=== PATIENT | female | born 1940 | race Caucasian/White ===

== ENCOUNTER → 2022-10-31 | Outpatient (CLI) | payer MEDICARE, OTHER, SELFPAY ==
--- NOTE | 2022-10-31 08:56 | STRESSREP_ITS ---
Stress Test Report Date: 10-31-2022 Procedure: Pharmacologic stress nuclear imaging study Indications: [Atrial fibrillation/flutter, valvular heart disease, pulmonary hypertension, hyperlipidemia, hypertension, peripheral arterial occlusive disease, chest pain] Consent: Per the patient Procedure: The patient underwent pharmacologic (Regadenoson 0.4mg ) evaluation with a peak heart rate of 108 beats per minute (78%predicted maximal heart rate) and a resting blood pressure of 128/82 mmHg and a peak blood pressure of 128/82 mmHg. The baseline ECG demonstrated atrial fibrillation; right bundle branch block pattern. The peak pharmacologic ECG demonstrated no obvious ECG changes. [There were no cardiac dysrhythmias pretest, during pharmacologic infusion, or recovery]. [There was no complaint of chest discomfort during pharmacologic infusion or recovery]. The examination was discontinued secondary to completion of protocol. Impression: 1. Pharmacologic (Regadenoson) evaluation 2. Peak pharmacologic ECG with continued atrial fibrillation with right bundle branch block pattern with no obvious ECG change. 3. [There were no cardiac dysrhythmias pretest, during pharmacologic infusion, or recovery]. 4. Nuclear images pending Myocardial perfusion imaging study: Technique: The patient was injected with 10.8 millicuries of technetium 99m Cardiolite and subsequently rest SPECT Cardiolite nuclear imaging was obtained in the horizontal long, vertical long, and short axis views. The patient underwent pharmacologic (Regadenoson) evaluation with a peak heart rate of 108 beats per minute (78% percent predicted maximal heart rate) and a resting blood pressure of 128/82 mmHg and a peak blood pressure of 128/82 mmHg. The patient was injecte d with 35.3 millicuries of technetium 99m Cardiolite and subsequently stress SPECT Cardiolite nuclear imaging was obtained in the horizontal long, vertical long, and short axis views. A gated Cardiolite study at peak stress was obtained. Interpretation: Rest and stress SPECT Cardiolite nuclear imaging status post realignment, normalization, and attenuation correction demonstrate []. [There is end systolic thickening and brightening]. [The gated Cardiolite study demonstrates myocardial thickening and inward wall motion]. The reported LVEF is []%. Impression: 1. [Rest and stress SPECT Cardiolite nuclear imaging demonstrate relative uniform tracer uptake and myocardial perfusion appearing within normal limits]. 2. The gated Cardiolite study reports an LVEF of []%. This note was generated with Dragon dictation software. It may contain incorrect words, spelling, and punctuation that were not noted in checking the note before signing.
--- NOTE | 2022-10-31 08:56 | STRESSREP ---
Stress Test Report Date: 10-31-2022 Procedure: Pharmacologic stress nuclear imaging study Indications: Atrial fibrillation/flutter, valvular heart disease, pulmonary hypertension, hyperlipidemia, hypertension, peripheral arterial occlusive disease, chest pain Consent: Per the patient Procedure: The patient underwent pharmacologic (Regadenoson 0.4mg ) evaluation with a peak heart rate of 108 beats per minute (78%predicted maximal heart rate) and a resting blood pressure of 128/82 mmHg and a peak blood pressure of 128/82 mmHg. The baseline ECG demonstrated atrial fibrillation; right bundle branch block pattern. The peak pharmacologic ECG demonstrated no obvious ECG changes. There were no cardiac dysrhythmias pretest, during pharmacologic infusion, or recovery. There was no complaint of chest discomfort during pharmacologic infusion or recovery. The examination was discontinued secondary to completion of protocol. Impression: 1. Pharmacologic (Regadenoson) evaluation 2. Peak pharmacologic ECG with continued atrial fibrillation with right bundle branch block pattern with no obvious ECG change. 3. There were no cardiac dysrhythmias pretest, during pharmacologic infusion, or recovery. 4. Nuclear images pending Myocardial perfusion imaging study: Technique: The patient was injected with 10.8 millicuries of technetium 99m Cardiolite and subsequently rest SPECT Cardiolite nuclear imaging was obtained in the horizontal long, vertical long, and short axis views. The patient underwent pharmacologic (Regadenoson) evaluation with a peak heart rate of 108 beats per minute (78% percent predicted maximal heart rate) and a resting blood pressure of 128/82 mmHg and a peak blood pressure of 128/82 mmHg. The patient was injected with 35.3 millicuries of technetium 99m Cardiolite and subsequently stress SPECT Cardiolite nuclear imaging was obtained in the horizontal long, vertical long, and short axis views. A gated Cardiolite study at peak stress was obtained. Interpretation: Rest and stress SPECT Cardiolite nuclear imaging status post realignment, normalization, and attenuation correction demonstrate relative uniform tracer uptake and myocardial perfusion appearing within normal limits. There is end systolic thickening and brightening. The gated Cardiolite study demonstrates myocardial thickening and inward wall motion. The reported LVEF is 71%. Impression: 1. Rest and stress SPECT Cardiolite nuclear imaging demonstrate relative uniform tracer uptake and myocardial perfusion appearing within normal limits. 2. The gated Cardiolite study reports an LVEF of 71%. This note was generated with [employer] software. It may contain incorrect words, spelling, and punctuation that were not noted in checking the note before signing.
== END | disposition home or self-care (01) ==
LOC: CVS 06:20
PROVIDERS: PCP Family Medicine; Referring Provider Internal Medicine Cardiovascular Disease; Visit Provider Internal Medicine Cardiovascular Disease
DX: R07.9 Chest pain, unspecified (principal); I27.20 Pulmonary hypertension, unspecified; I48.91 Unspecified atrial fibrillation; I36.1 Nonrheumatic tricuspid (valve) insufficiency; I34.0 Nonrheumatic mitral (valve) insufficiency; E78.2 Mixed hyperlipidemia; I10 Essential (primary) hypertension; I65.23 Occlusion and stenosis of bilateral carotid arteries
CPT/HCPCS: 78452; 93017; A9500; J2785

== ENCOUNTER → 2022-11-09 | Outpatient (CLI) | payer MEDICARE, OTHER, SELFPAY ==
[2022-11-09 12:54] LABS: Anion Gap 6 (5-15); BUN 20 mg/dL (7-18); BUN/Creat Ratio 22.3 RATIO (10-20); Chloride 101 mmol/L (98-107); EST Glomerular Filtration Rate 64 mL/min (>60); Est Glom Filt Rate - Afr Amer 77 mL/min (>60); Glucose 116 mg/dL (74-106); Potassium 4.5 mmol/L (3.5-5.1); Sodium Level 134 mmol/L (136-145)
== END | disposition home or self-care (01) ==
PROVIDERS: PCP Family Medicine; Referring Provider Physician Assistant Medical; Visit Provider Physician Assistant Medical
DX: I48.91 Unspecified atrial fibrillation (principal)
CPT/HCPCS: 36415; 80048

== ENCOUNTER 2022-11-14 10:45 | Day surgery (SDC) | payer MEDICARE, OTHER, SELFPAY ==
--- NOTE | 2022-11-13 13:01 | PCM.HP.BLA ---
History and Physical Date of Admission: 11/14/22 [facility] [address] [place] [address] OFFICE VISIT Date of Service:? 11/09/22 MR#: [id number] Acct: [id number] Name:SHIREEN SCHMIDT Rep #: [id number] : 1940 Provider: ?JODEE Turcios Age/Sex:? 82/F Location: [facility] Status: Signed HPI HPI History of Present Illness Details: Shireen Christensen is an 82-year-old white female who presents today for cardiovascular follow up.? She was recently diagnosed with atrial fibrillation.? At an outside hospital she had an echocardiogram done which demonstrated an ejection fraction of 54%, left atrium mildly dilated, mild MR, mild to moderate TR and trivial AI.? RVSP was 36 mmHg.? She also has a history of hypertension, hyperlipidemia and carotid artery stenosis.? She recently underwent a pharmacologic nuclear stress test which was negative for ischemia. Patient is not aware of her atrial fibrillation.? She does sometimes note that she might be more fatigued going down the steps.? However she does not have any chest pain, worsening shortness of breath, lightheadedness, dizziness or syncopal episodes.? She is in the process of being scheduled to have a lump removed from her left back behind her shoulder blade, this is now affected the nerves in her back and she would like to have it removed.? Intake Vital Signs ? 11/09/2309:44 11/09/2309:44 Height 5 ft 7 in 5 ft 7 in Weight: 164 lb ? BMI 25.7 ? BP 121/82 H ? Blood Pressure Location Lt brachial ? Position Sitting ? Respiration 18 ? Pulse 98 ? Pulse Source Monitor ? Pulse Oximetry (%) 99 ? Intake Visit Reasons:?6 wk FU Adhesive Primer Required: No Is patient in pain?: No Allergies acetaminophen [From Vicodin] Allergy (Unknown, Verified 11/09/22 10:44) Itchingamoxicillin [From Augmentin] Allergy (Unknown, Verified 11/09/22 10:44) Itchingchlordiazepoxide [From Librax (with clidinium)] Allergy (Unknown, Verified 11/09/22 10:44) Itchingclavulanic acid [From Augmentin] Allergy (Unknown, Verified 11/09/22 10:44) Itchingclidinium [From Librax (with clidinium)] Allergy (Unknown, Verified 11/09/22 10:44) Itchingfentanyl Allergy (Unknown, Verified 11/09/22 10:44) Rashhydrocodone [From Vicodin] Allergy (Unknown, Verified 11/09/22 10:44) ItchingLatex, Natural Rubber Allergy (Unknown, Verified 11/09/22 10:44) Rashoxycodone [From Percocet] Allergy (Unknown, Verified 11/09/22 10:44) ItchingPenicillins Allergy (Unknown, Verified 11/09/22 10:44) Itchingtramadol Allergy (Unknown, Verified 11/09/22 10:44) QemxwipNcjrlbz-YVN-RaY Reductase Inhibitor Adverse Reaction (Unknown, Verified 11/09/22 10:44) Myalgias/Weakness Medications Lactobacillus acidophilus 200 mmu cells PO DAILY 09/13/22 [History Confirmed 11/09/22] calcium citrate 315 mg calcium-vitamin D3 6.25 mcg (250 unit) tablet (Citracal + Vitamin D Maximum) 2 tab PO BID 09/13/22 [History Confirmed 11/09/22] cholecalciferol (vitamin D3) 100 mcg (4,000 unit) tablet 100 mcg PO DAILY 09/13/22 [History Confirmed 11/09/22] cyanocobalamin (vitamin B-12) 1,000 mcg tablet 1,000 mcg PO DAILY 09/13/22 [History Confirmed 11/09/22] fenofibrate 160 mg tablet 160 mg PO DAILY 09/13/22 [History Confirmed 11/09/22] fluoxetine 20 mg tablet 20 mg PO DAILY 09/13/22 [History Confirmed 11/09/22] fluticasone propionate 50 mcg/actuation nasal spray,suspension (Allergy Relief (fluticasone)) 1 spray intranasal DAILY PRN allergy symptoms 09/13/22 [History Confirmed 11/09/22] folic acid 1 mg tablet 1 mg PO DAILY 09/13/22 [History Confirmed 11/09/22] lansoprazole 30 mg capsule,delayed release 30 mg PO BID 09/13/22 [History Confirmed 11/09/22] lisinopril 5 mg tablet 5 mg PO DAILY 09/13/22 [History Confirmed 09/15/22] methotrexate sodium 2.5 mg tablet 10 mg PO QWEEK 09/13/22 [History Confirmed 11/09/22] multivitamin 1 tab PO DAILY 09/13/22 [History Confirmed 11/09/22] omega-3 fatty acids 1,000 mg capsule 2,000 mg PO DAILY 09/13/22 [History Confirmed 11/09/22] sucralfate 1 gram tablet 1 g PO TID 09/13/22 [History Confirmed 11/09/22] magnesium 250 mg tablet 500 mg PO DAILY 09/15/22 [History Confirmed 11/09/22] apixaban 5 mg tablet 5 mg PO BID #180 tabs 10/16/22 [Rx Confirmed 11/09/22] metoprolol tartrate 25 mg tablet 25 mg PO BID #180 tabs 10/16/22 [Rx Confirmed 11/09/22] gabapentin 100 mg capsule 100 mg PO BID 11/09/22 [History Confirmed 11/09/22] PFSH Medical History? Bilateral carotid artery stenosis Essential hypertension GERD (gastroesophageal reflux disease) History of left heart catheterization (LHC) (~10/24/05) Leukopenia Lung nodule seen on imaging study Lymphopenia Mild pulmonary hypertension Mixed hyperlipidemia New onset atrial fibrillation Non-rheumatic mitral regurgitation Non-rheumatic tricuspid valve insufficiency Skin cancer Thyroid nodule Surgical History? History of appendectomy History of arthroscopy of both knees History of cholecystectomy History of partial colectomy S/P ERIN-BSO (total abdominal hysterectomy and bilateral salpingo-oophorectomy) Family History? Brother Cancer ?? ? LungFather COPD (chronic obstructive pulmonary disease) ?? ? Black LungBrother Cancer ?? ? ThroatAunt Breast cancerBrother Cancer ?? ? Lung/Liver Social History? Smoking Status:? Never smoker alcohol intake:? never substance use type:? does not use caffeine:? Yes Type: coffee Number of servings: 2 ROS Const Const: Positive for weakness (Bilat LE climbing stairs); Negative for fatigue, body ache, fever(s), headache(s), chills, frequent falls, night sweats, daytime sleepiness, difficulty sleeping, excessive sweating, weight gain, weight loss, increased appetite, poor appetite, anorexia or other Eyes Eyes: Negative for blurry vision or double vision ENT ENT: Negative for headache(s), dizziness or balance problems Cardio Chest Pain: No Palpitations: No Edema: None Muscle aches with walking: None Resp Respiratory: Negative for SOB with activity, SOB at rest, SOB orthopnea\SOB lying down, Cough, Coughing up blood/hemoptysis, chest congestion, pain on inspiration, snoring, stridor, wheezing, crackles, paroxysmal nocturnal dyspnea or other Musc Musc: Positive for joint pain (HX RA); Negative for muscle aches/ myalgia, muscle weakness or balance problems Neuro Neuro: Positive for weakness (Bilat LE climbing stairs); Negative for dizziness, lightheadedness, near syncope, syncope, orthostatic symptoms, frequent falls, headache(s), confusion, memory loss, restless legs, blurry vision, double vision, vertigo, seizures, lack of coordination or other Endo Endo: Negative for fatigue or excessive sweating Cardiology Exam Const Appearance: cooperative, healthy appearing, comfortable, no acute distress, well developed and well groomed Nutritional Appearance: average body habitus Orientation: alert, awake and oriented x3 Head Head: normal to inspection, normocephalic and atraumatic Ears: hearing grossly normal bilaterally Nose: external nose normal Face and Sinus: face symmetric Eyes Eyelids: eyelids normal Conjunctivae: conjunctivae normal Pupils: PERRL EOM: EOM intact bilaterally Neck Neck: normal visual inspection and full ROM Carotids: normal carotid upstroke Chest Chest inspection: normal inspection of the chest, symmetric chest movement and normal respiratory effort Auscultation: Bilateral: Clear to Auscultation Cardio Palpation: normal PMI Rhythm: irregularly irregular Heart sounds: S1 normal, S2 normal and murmur Murmur: Grade 2/6, soft, mid systolic and LLSB GI GI: normal to inspection, soft and bowel sounds present Neuro General: patient alert, patient awake, patient oriented x3 and moves all extremities Skin Skin: no rashes or lesions noted Extremities Pulses: Normal: Right Radial Pulse and Left Radial Pulse Lower Extremity Edema: None: Bilateral Psych Psychological: normal affect Supplemental Info Supplemental Information Stress Test Report Date: 10-31-2022 Procedure: Pharmacologic stress nuclear imaging study? Indications: Atrial fibrillation/flutter, valvular heart disease, pulmonary hypertension, hyperlipidemia, hypertension, peripheral arterial occlusive disease, chest pain Consent: Per the patient Procedure: The patient underwent pharmacologic (Regadenoson 0.4mg ) evaluation with a peak heart rate of 108 beats per minute (78%predicted maximal heart rate) and a resting blood pressure of 128/82 mmHg and a peak blood pressure of 128/82 mmHg. The baseline ECG demonstrated atrial fibrillation; right bundle branch block pattern.? The peak pharmacologic ECG demonstrated no obvious ECG changes. There were no cardiac dysrhythmias pretest, during pharmacologic infusion, or recovery. There was no complaint of chest discomfort during pharmacologic infusion or recovery. The examination was discontinued secondary to completion of protocol. Impression: 1.? Pharmacologic (Regadenoson) evaluation 2.? Peak pharmacologic ECG with continued atrial fibrillation with right bundle branch block pattern with no obvious ECG change. 3.? There were no cardiac dysrhythmias pretest, during pharmacologic infusion, or recovery. 4.? Nuclear images pending Myocardial perfusion imaging study: Technique: The patient was injected with 10.8 millicuries of technetium 99m Cardiolite and subsequently rest SPECT Cardiolite nuclear imaging was obtained in the horizontal long, vertical long, and short axis views. The patient underwent pharmacologic (Regadenoson) evaluation with a peak heart rate of 108 beats per minute (78% percent predicted maximal heart rate) and a resting blood pressure of 128/82 mmHg and a peak blood pressure of 128/82 mmHg. The patient was injected with 35.3 millicuries of technetium 99m Cardiolite and subsequently stress SPECT Cardiolite nuclear imaging was obtained in the horizontal long, vertical long, and short axis views.? A gated Cardiolite study at peak stress was obtained. Interpretation: Rest and stress SPECT Cardiolite nuclear imaging status post realignment, normalization, and attenuation correction demonstrate relative uniform tracer uptake and myocardial perfusion appearing within normal limits.? There is end systolic thickening and brightening.? The gated Cardiolite study demonstrates myocardial thickening and inward wall motion.? The reported LVEF is 71%. Impression: 1.? Rest and stress SPECT Cardiolite nuclear imaging demonstrate relative uniform tracer uptake and myocardial perfusion appearing within normal limits. 2.? The gated Cardiolite study reports an LVEF of 71%. Echocardiogram 08/2023 at [facility]: left ventricle demonstrated an LVEF of 54%, the left atrium was mildly dilated, there was mild MR and mild to moderate TR and trivial AI.? Her estimated RV systolic pressure was 36 mmHg. Labs: ?? ? No Data to Display Diagnostics: ?? ? Electrocardiogram ? Stress Test ? Stress Test Nuclear Medicine ? Pulmonary: ?? ? No Data to Display Past Visits: ?? ? Cardiology Visit ? 11/09/22 Assessment and Plan Assessment and Plan (1) New onset atrial fibrillation: ?Status:?Acute ?Plan: This is newer for patient.? She has been anticoagulated for at least 30 days.? Would like to pursue a cardioversion in the near future. Patient will continue with her metoprolol and her apixaban. In regards to her possible upcoming surgery from lump on her back she was instructed needs to be postponed till mid December if she pursues the cardioversion.? She is agreeable with this.? At the present time she appears to have atrial fibrillation/flutter. (2) Non-rheumatic tricuspid valve insufficiency: ?Status:?Acute ?Comment: Mild-Mod per ECHO 08/18/22 @ [facility] ?Plan: This is stable, will continue to monitor with echocardiograms as deemed appropriate. (3) Non-rheumatic mitral regurgitation: ?Status:?Acute ?Comment: Mild per ECHO 08/18/22 @ [facility] ?Plan: This is mild, will continue to monitor with echocardiograms as deemed appropriate. (4) Mild pulmonary hypertension: ?Status:?Acute ?Comment: 36mmHG per ECHO @ [facility] 08/18/22 ?Plan: This is mild, will continue with echocardiograms as deemed appropriate. (5) Mixed hyperlipidemia: ?Status:?Acute ?Plan: This is managed by her primary care doctor.? Will not make any adjustments. (6) Essential hypertension: ?Status:?Acute ?Plan: Blood pressure is controlled on her lisinopril.? This is previously managed by her primary care doctor.? Will not make any adjustments. (7) Bilateral carotid artery stenosis: ?Status:?Acute ?Plan: Stable, this is managed by her primary care doctor. ? ? ? Orders: Orders Cardioversion Today I48.91 - Unspecified atrial fibrillation ? Basic Metabolic Profile (BMP) Today I48.91 - Unspecified atrial fibrillation ?Patient Instructions: Your procedure is schedule for Tuesday 11/14 for 1230, you will arrive at 1100. If this is different I will call you back.? Nothing to eat or drink after midnight With a small sip of water take your morning medications. You will need a driver operator.? Plan Details Additional Comments: The above was discussed with her and she was agreeable to this approach. Thank you for allowing me to participate in the care of your patient.? Please don't hesitate to call if any issues arise. This note was generated using a voice recognition system and there may be incorrect words, spelling or punctuation that were not noted when reviewing the office note prior to saving. Follow Up: ? ? 11/09/22 (DCCV being scheduled for 11/14, needs EKG one week later) ? ? 3 Months (MMM) Coding Level of Care Code Off vis,est,level 4 Diagnoses New onset atrial fibrillation? I48.91 Non-rheumatic tricuspid valve insufficiency? I36.1 Non-rheumatic mitral regurgitation? I34.0 Mild pulmonary hypertension? I27.20 Mixed hyperlipidemia? E78.2 Essential hypertension? I10 Bilateral carotid artery stenosis? I65.23 Coding Level of Care Code Off vis,est,level 4 Diagnoses New onset atrial fibrillation? I48.91 Non-rheumatic tricuspid valve insufficiency? I36.1 Non-rheumatic mitral regurgitation? I34.0 Mild pulmonary hypertension? I27.20 Mixed hyperlipidemia? E78.2 Essential hypertension? I10 Bilateral carotid artery stenosis? I65.23 11/09/22 1311 <Electronically signed by Mairam ELLSWORTH> Date Mariam ELLSWORTH Cosigner Signature: Date (if applicable) CC:? Dr. Brannon Krishna MD ~ Assessment & Plan Addt'l Comments Addendum: 11/14/2022 I have examined the patient and the H&P has been reviewed. There are no clinical changes since date of exam. This note was generated using a voice recognition system and there may be incorrect words, spelling or punctuation that were not noted when reviewing the office note prior to saving.
[2022-11-13 14:02] VITALS: BMI 25.7
--- NOTE | 2022-11-14 11:09 | EKG12_ITS ---
Test Reason : AFIB Blood Pressure : / mmHG Vent. Rate : 082 BPM Atrial Rate : 080 BPM P-R Int : 000 ms QRS Dur : 136 ms QT Int : 412 ms P-R-T Axes : 000 080 -24 degrees QTc Int : 481 ms Atrial fibrillation Right bundle branch block Abnormal ECG Confirmed by ROLANDO ABDI, ALEX ([id number]), deputy editor in chief LA BARAJAS ([id number]) on 11/16/2022 9:36:50 AM Referred By: Alex Marshall Confirmed By:ALEX MARSHALL MD
--- NOTE | 2022-11-14 13:19 | PCM.OP.PRO ---
Assessment & Plan Assessment/Plan (1) New onset atrial fibrillation: Procedure Report Date of Procedure: 11/14/22 CONSCIOUS SEDATION REPORT BRIEF HISTORY OF PRESENT ILLNESS: The patient is an 82-year-old female who presented to [facility] for an elective outpatient cardioversion due to underlying atrial fibrillation. The patient reports no PO intake since midnight, but is currently therapeutic on anticoagulation. The patient does not have a history of LESTER, asthma or COPD per patient report. The patient denies any recent constitutional symptoms such as fevers, chills, nausea or vomiting. The patient denies previous applicable anesthetic complications. The patient does report taking Eliquis on the day of the procedure. Patient's last known ejection fraction was 54%. PHYSICAL EXAMINATION: VITAL SIGNS: Reviewed and were acceptable. GENERAL: The patient is a female, in no apparent distress, speaking in full sentences. HEENT: Normocephalic, atraumatic. Mucous membranes are moist and pink. Good mouth opening noted. Edentulous. Trachea is midline. Good neck mobility. MP II CHEST: S1, S2 irregularly irregular. No murmurs, rubs or gallops were noted. LUNGS: Clear to auscultation bilaterally without appreciable wheezes, rales or rhonchi. ABDOMEN: Soft, nontender, nondistended. Positive bowel sounds. EXTREMITIES: There is no clubbing, cyanosis or edema. ASA Class: II DESCRIPTION OF PROCEDURE: After confirmation of informed consent, the patient's anesthesia plan was reviewed in detail. Propofol was chosen. Risks and benefits were reviewed and the patient agreed to proceed. At 12:10 PM, the patient was given 40 mg of propofol. The patient achieved an appropriate level of sedation and received 1 attempt synchronized cardioversion, at [address] Barros at the bedside. This was successful in achieving normal sinus rhythm. The patient was monitored until 12:24 PM, at which time the patient reached their baseline mental status and function. The patient tolerated the procedure well. COMPLICATIONS: None ESTIMATED BLOOD LOSS: None RECOMMENDATIONS: Okay to recover in usual fashion. Procedures Pulmonary 9xxxx: [id number] Con Sedation
--- NOTE | 2022-11-14 13:54 | CARDIOVERS_ITS ---
Cardioversion Cardioversion: Date: 11-14-2021 Procedure: Synchronized Biphasic DC Cardioversion Indications: Atrial fibrillation/flutter Consent: Per the Patient Anesthesia: per Dr. Schmid of pulmonology and critical care medicine with propofol 40 mg IV push to Procedure: Synchronized Biphasic DC Cardioversion: 200 J x 1: Result: Sinus rhythm; PACs Complications: no apparent complications This note was generated with [employer] software. It may contain incorrect words, spelling, and punctuation that were not noted in checking the note before signing.
== END 2022-11-14 13:15 | disposition home or self-care (01) ==
LOC: CLSP 10:47
PROVIDERS: PCP Family Medicine; Referring Provider Internal Medicine Cardiovascular Disease; Visit Provider Internal Medicine Cardiovascular Disease
DX: I48.91 Unspecified atrial fibrillation (principal); I27.20 Pulmonary hypertension, unspecified; I73.9 Peripheral vascular disease, unspecified; E78.2 Mixed hyperlipidemia; I65.23 Occlusion and stenosis of bilateral carotid arteries; I45.10 Unspecified right bundle-branch block; I10 Essential (primary) hypertension; K21.9 Gastro-esophageal reflux disease without esophagitis; R07.9 Chest pain, unspecified; I36.1 Nonrheumatic tricuspid (valve) insufficiency; I34.0 Nonrheumatic mitral (valve) insufficiency
CPT/HCPCS: 92960; 93005; J7040

== ENCOUNTER → 2024-08-06 | Outpatient (CLI) | payer MEDICARE, OTHER, SELFPAY ==
--- NOTE | 2024-08-06 08:39 | US_ITS ---
STUDY: ABDOMINAL ULTRASOUND - RIGHT UPPER QUADRANT; ELASTOGRAPHY REASON FOR VISIT: Female, 84 years old. MERCADO TECHNIQUE: Ultrasound evaluation of the right upper quadrant was performed with real-time and static mckeon-scale imaging. Point quantification shear wave elastography was performed ([facility]). TECHNICAL QUALITY: Adequate. COMPARISON: None. FINDINGS: Liver: The liver measures 13.2 cm. There is a heterogeneous echogenicity of the liver. The bile ducts are within normal limits. There is hepatic color flow. The direction of portal flow is hepatopetal. There is no demonstrated mass lesion. Median liver stiffness measured 6.7 kPa. Gallbladder: The patient is status post cholecystectomy. Common Bile Duct (C.B.D.): The common bile duct measures 7 mm. Pancreas: There is normal echogenicity of the visualized pancreas. There is no demonstrated pancreatic mass or cyst. Right Kidney: Normal size of the right kidney. The right kidney measures 11.4 cm x 5.4 cm x 4.6 cm. Normal renal cortex. The right cortex measures 1.2 cm. There is a 1.1 cm x 1.1 cm x 0.9 cm right renal cyst. There is no right hydronephrosis. US/ABD Limited w/ Elastography IMPRESSION: 1. Liver stiffness measures 6.7 kPa compatible with F2-F3 (Mild to moderate liver fibrosis) Metavir score. Electronically Signed: Gustavo Gillespie MD at 14:04 EST ,
== END | disposition home or self-care (01) ==
PROVIDERS: PCP Family Medicine; Referring Provider Family Medicine; Visit Provider Family Medicine
DX: K75.81 Nonalcoholic steatohepatitis (NASH) (principal)
CPT/HCPCS: 76700; 76705; 76981